=== PATIENT | female | born 1945 | race Caucasian/White ===

== ENCOUNTER 2021-11-26 18:32 | Emergency (ER) | payer MEDICARE, OTHER ==
[~2021-11-26] VITALS: Ht 157.5 cm; Wt 49.9 kg
--- NOTE | 2021-11-26 20:00 | NUR ---
PT [facility] [address] "Unwitnessed fall around noon today. - KO. PT C/O LEFT KNEE AND ANKLE PAIN. PT A/O X 3, RR EVEN AND UNLABORED, NO SOB NOTED. PT NOTED IN NO ACUTE DISTRESS. WILL CONTINUE TO MONITOR.
[2021-11-26 20:36] LABS: BASOPHILS % (AUTO) 0.3 % (0.0-2.0); EOSINOPHILS % (AUTO) 0.7 % (0.0-6.0); HEMATOCRIT 36 % (33-45); HEMOGLOBIN 12.3 g/dL (11.5-14.8); LYMPHOCYTES # (AUTO) 2.1 K/uL (0.8-4.8); LYMPHOCYTES % (AUTO) 24.3 % (20.0-44.0); MEAN CORPUSCULAR HGB CONC 34 g/dl (31.0-36.0); MEAN CORPUSCULAR VOLUME 97 fL (82-100); NEUTROPHILS # (AUTO) 5.6 K/uL (1.8-8.9); NEUTROPHILS % (AUTO) 63.7 % (43.0-81.0); PLATELET COUNT (AUTO) 245 K/uL (150-450); RED BLOOD CELL COUNT(AUTO) 3.74 MIL/uL (4.0-5.2); WHITE BLOOD COUNT (AUTO) 8.7 K/uL (4.3-11.0)
--- NOTE | 2021-11-26 21:00 | NUR ---
[facility]
[2021-11-26 21:36] LABS: ALANINE AMINOTRANSFERASE 9 U/L (12-78); ALBUMIN 3.4 g/dL (3.4-5.0); ALKALINE PHOSPHATASE 70 U/L (46-116); ASPARTATE AMINOTRANSFERASE 37 U/L (15-37); BILIRUBIN,DIRECT 0.2 mg/dL (0.0-0.2); BILIRUBIN,TOTAL 0.7 mg/dL (0.2-1.0); CALCIUM, SERUM 8.8 mg/dL (8.5-10.1); CARBON DIOXIDE 25 mmol/L (21-32); CHLORIDE 108 mmol/L (98-107); CREATININE 0.8 mg/dL (0.6-1.3); GLUCOSE 102 mg/dL (74-106); POTASSIUM 3.8 mmol/L (3.5-5.1); SODIUM SERUM 142 mmol/L (136-145); TOTAL PROTEIN, SERUM 6.3 g/dL (6.4-8.2); UREA NITROGEN, BLOOD 27 mg/dL (7-18)
--- NOTE | 2021-11-26 21:50 | NUR ---
[facility]SP[facility] ETA 60-75 MINUTES.
--- NOTE | 2021-11-26 23:10 | NUR ---
[facility] UPDATED ETA 30 MINUTES.
--- NOTE | 2021-11-27 00:37 | NUR ---
[facility] AT BEDSIDE FOR PICKUP BACK TO FACILITY
--- NOTE | 2021-11-27 00:50 | NUR ---
PT TRANSPORTED BACK TO [facility] EM[facility] IN STABLE CONDITION.
[2021-11-27 01:00] VITALS: BP 131/96
[2021-12-04] MEDS ORDERED: CEPH500C2 PO (09:32)
== END 2021-11-27 00:50 | disposition home or self-care (01) ==
LOC: ER 18:38
DX: R39.2 Extrarenal uremia (principal); R29.6 Repeated falls; F20.9 Schizophrenia, unspecified; Z86.69 Personal history of other diseases of the nervous system and sense organs
CPT/HCPCS: 36415; 70450-TC; 72125-TC; 80048-TC; 80076-TC; 84484-TC; 85025-TC; 85730-TC

== ENCOUNTER 2021-12-01 14:01 | Inpatient (IN) | payer MEDICARE, OTHER ==
[~2021-12-01] VITALS: Ht 152.7 cm; Wt 45.4 kg
--- NOTE | 2021-12-01 14:28 | NUR ---
TO ER BED 10, BIBPA S/P FALL. UNWITNESSED FOUND BY STAFF ON FLOOR. LT ANKLE SWELLING HX OF FALL, AAOX3, BREATHING EVEN AND NON LABORED, CONNECTED TO MONITOR, AWAITING MD STAPLETON
--- NOTE | 2021-12-01 15:55 | NUR ---
[facility] AT BEDSIDE FOR XRAY
[2021-12-01 16:29] LABS: BASOPHILS % (AUTO) 0.1 % (0.0-2.0); EOSINOPHILS % (AUTO) 1.1 % (0.0-6.0); HEMATOCRIT 36 % (33-45); LYMPHOCYTES # (AUTO) 1.6 K/uL (0.8-4.8); LYMPHOCYTES % (AUTO) 19.6 % (20.0-44.0); MEAN CORPUSCULAR HGB CONC 34 g/dl (31.0-36.0); MEAN CORPUSCULAR VOLUME 96 fL (82-100); MONOCYTES # (AUTO) 0.9 K/uL (0.1-1.30); MONOCYTES % (AUTO) 11.1 % (2.0-12.0); NEUTROPHILS # (AUTO) 5.5 K/uL (1.8-8.9); NEUTROPHILS % (AUTO) 68.1 % (43.0-81.0); PLATELET COUNT (AUTO) 299 K/uL (150-450); RED BLOOD CELL COUNT(AUTO) 3.72 MIL/uL (4.0-5.2)
[2021-12-01 17:09] LABS: CALCIUM, SERUM 8.7 mg/dL (8.5-10.1); CREATININE 0.7 mg/dL (0.6-1.3); POTASSIUM 3.8 mmol/L (3.5-5.1)
[2021-12-01] MEDS ORDERED: ARIP5TAB10 PO (18:26)
[2021-12-01] MEDS ORDERED: CARB1TAB31 PO (18:26)
[2021-12-01] MEDS ORDERED: ATOR10TA PO (18:26)
--- NOTE | 2021-12-01 20:48 | NUR ---
EPIC PANEL PAGED
--- NOTE | 2021-12-01 20:50 | NUR ---
EPIC PAGED FOR PANEL CALL
--- NOTE | 2021-12-01 21:27 | NUR ---
REPORT GIVEN TO GRACIELA NYE
--- NOTE | 2021-12-01 21:29 | NUR ---
RFA #20G S/L; PATENT AND INTACT. COVID ANTIGEN SWAB COLLECTED AND SENT TO LAB
--- NOTE | 2021-12-01 21:42 | NUR ---
PT TRANSFERRING TO [facility]IA HOSPITAL PROTOCOL. VSS
[2021-12-01] MEDS ORDERED: MAGNESIUM HYDROXIDE 30 ML UDC PO PRN (23:00)
[2021-12-01] MEDS ORDERED: Z GUARD REMEDY 4 OZ OINT TP PRN (23:00)
[2021-12-01] MEDS ORDERED: MAG HYDROX/AL HYDROX/SIMETH 30 ML UDC PO PRN (23:00)
[2021-12-01] MEDS ORDERED: ACETAMINOPHEN 325 MG TABLET PO PRN (23:00)
[2021-12-01] MEDS ORDERED: ZOLPIDEM TARTRATE 5 MG TABLET PO PRN (23:00)
[2021-12-01] MEDS ORDERED: ONDANSETRON HCL/PF 4 MG/2 ML VIAL IVP PRN (23:00)
[2021-12-01 23:31] VITALS: BP 146/71
--- NOTE | 2021-12-01 23:39 | NUR ---
FISCAL ANALYSTSAFETY TEACHER NOTE PATIENT CAME IN UNIT @0550 ACCOMPANIED BY 1 ER PERSONNEL VIA [employer]. NO S/S OF APPARENT DISTRESS ON ROOM AIR. A/OX2-3. NO C/O AT THIS TIME-- PER PATIENT SHE ONLY FEELS PAIN IN HER LEGS ONLY WHEN SHE MOVES AND WALK. PATIENT UNSTEADY. NEW ID BAND ON PATIENT. BELONGINGS INVENTORIED. PATIENT WISHES TO BE FULL CODE AT THIS TIME. PER PATIENT SHE HAS NO CONTACT NUMBER IN FILE, NO NEXT OF KIN CHARTED WELL. TELE MONITOR READING SR WITH 60 BPM. PER PATIENT SHE QUIT SMOKING 6 YEARS AGO OR LONGER. DENIES ALCOHOL ABUSE. INTACT SKIN, WITH BRUISE ON R. LEG. V/S FOLLOWS: 146/71, 60 BPM, RR-16, T-98.4, SATURATION 96% IN ROOM AIR. ORIENTED IN THE UNIT AND THE USE OF CALL LIGHT. SAFETY IN PLACE. WILL CONTINUE WITH PLAN OF CARE FOR PATIENT.
[2021-12-01] MEDS: IV NS 0.9% 1,000 ML IV PRN (23:50)
--- NOTE | 2021-12-02 03:30 | NUR ---
SHOE PARTS CASER NOTE UA, CLEAN CATH COLLECTED AT THIS TIME. CALLED LAB FOR ORCHARDIST.
--- NOTE | 2021-12-02 03:59 | NUR ---
ORTHOSTATIC BP LYING DOWN- 131/50 HR-89 SITTING DOWN - 120/60 HR-86 STANDING UP - 110/61 HR- 105 PATIENT FAIRLY WEAK. ASSISTED WITH KEEPING UPRIGHT. SAFETY MAINTAINED WITH THE ASSISTANCE OF RADIOLOGY NURSE. PATIENT DENIED FEELING FAINT OR DIZZINESS DURING ORTHOSTATIC BUT DID VERBALIZE FEELING WEAK WHEN SITTED DOWN AND UPRIGHT.
[2021-12-02 04:16] VITALS: BP 131/50
[2021-12-02 05:48] LABS: BASOPHILS % (AUTO) 0.1 % (0.0-2.0); EOSINOPHILS % (AUTO) 1.2 % (0.0-6.0); HEMATOCRIT 33 % (33-45); HEMOGLOBIN 11.2 g/dL (11.5-14.8); LYMPHOCYTES # (AUTO) 1.4 K/uL (0.8-4.8); MEAN CORPUSCULAR HGB CONC 34 g/dl (31.0-36.0); MEAN CORPUSCULAR VOLUME 96 fL (82-100); MONOCYTES # (AUTO) 0.7 K/uL (0.1-1.30); MONOCYTES % (AUTO) 9.3 % (2.0-12.0); NEUTROPHILS # (AUTO) 5.2 K/uL (1.8-8.9); NEUTROPHILS % (AUTO) 70.4 % (43.0-81.0); PLATELET COUNT (AUTO) 271 K/uL (150-450); RED BLOOD CELL COUNT(AUTO) 3.44 MIL/uL (4.0-5.2); WHITE BLOOD COUNT (AUTO) 7.4 K/uL (4.3-11.0)
[2021-12-02 05:59] LABS: CALCIUM, SERUM 8.3 mg/dL (8.5-10.1); CARBON DIOXIDE 26 mmol/L (21-32); CHLORIDE 109 mmol/L (98-107); CREATININE 0.7 mg/dL (0.6-1.3); GLUCOSE 78 mg/dL (74-106); MAGNESIUM 1.9 mg/dL (1.8-2.4); POTASSIUM 3.6 mmol/L (3.5-5.1); SODIUM SERUM 144 mmol/L (136-145); UREA NITROGEN, BLOOD 20 mg/dL (7-18)
[2021-12-02 06:12] LABS: CHOLESTEROL 119 mg/dL (<200); HDL CHOLESTEROL 53 mg/dL (40-60); LDL 57 mg/dL (0-99); THYROID STIMULATING HORMONE 2.348 uIU/mL (0.358-3.74); TRIGLYCERIDES 38 mg/dL (30-150)
--- NOTE | 2021-12-02 06:40 | NUR ---
CREDIT UNION FIELD EXAMINER CLOSING NOTE PATIENT IN BED WITH EYES CLOSED, EASY TO AROUSE. NO S/S OF APPARENT DISTRESS IN ROOM AIR. NO C/O PAIN AT THIS TIME. TELE MONITOR READING SR WITH 61 BPM AT THIS TIME. R. FA #20G RUNNING NS @75MLS/HR. NEEDS ATTENDED. ALL SCHEDULED MEDICATIONS ADMINISTERED. WILL ENDORSE TO MORNING SHIFT RN FOR CONTINUITY OF CARE.
--- NOTE | 2021-12-02 07:25 | NUR ---
ms rn received on bed awake,oriented x2,not in any form of distress, respirations even and unlabored,no sob noted.lugs are clear,abdomen soft,positive bowel sounds,denies pain at this time.
[2021-12-02 08:00] VITALS: BP 114/57
--- NOTE | 2021-12-02 08:50 | NUR ---
ms castellano breakfast served,due med given tolerated well.will monitor patient.
[2021-12-02] MEDS: PANTOPRAZOLE 40 MG TABLET.DR PO SCH (09:34)
[2021-12-02] MEDS: ARIPIPRAZOLE 5 MG TABLET PO SCH (10:09)
[2021-12-02] MEDS: CARBIDOPA/LEVODOPA 10/100 MG 1 UDTAB PO SCH ×3 (11:37→17:05)
[2021-12-02 12:00] VITALS: BP 117/64
--- NOTE | 2021-12-02 12:00 | NUR ---
ms rn on bed, no distress noted.
[2021-12-02 13:01] LABS: BILIRUBIN,URINE NEGATIVE (NEGATIVE); COLOR,URINE ORANGE (YELLOW); LEUKOCYTE ESTERASE ,URINE SMALL (NEGATIVE); NITRITE, URINE POSITIVE (NEGATIVE); PROTEIN,URINE NEGATIVE (NEGATIVE); UGLUCOSE NEGATIVE (NEGATIVE); UROBILINOGEN,URINE 0.2 EU/dL (0.2)
[2021-12-02 13:15] LABS: BACTERIA,URINE 4+ /HPF (None Seen); RBC,URINE 0-2 /HPF (0-2)
--- NOTE | 2021-12-02 15:20 | NUR ---
ms rn removed iv heplock, will reinsert later.
[2021-12-02 16:00] VITALS: BP 138/68
[2021-12-02] MEDS: IV NS 0.9% 1,000 ML IV PRN (18:20)
[2021-12-02] MEDS: CEFTRIAXONE 1 G in IV D5W 50 ML IV SCH (18:30)
--- NOTE | 2021-12-02 19:00 | NUR ---
ms rn all needs attended.
--- NOTE | 2021-12-02 19:30 | NUR ---
RN OPENING NOTE PATIENT IN BED. AWAKE. PATIENT IS A/O X 2 AT THIS TIME. PATIENT HAS A LFA 22 G WITH NS AT 75 ML/HR. PATENT AND INTACT. PATIENT DOES NOT REPORT ANY PAIN OR DISCOMFORT AT THIS TIME. PATIENT ON RA, TOLERATING WELL. NO SOB NOTED. SAFETY MEASURES IN PLACE: BED LOCKED AND IN LOWEST POSITION, CALL LIGHT WITHIN REACH, SIDE RAILS UP. WILL MONITOR PATIENT CLOSELY. Addendum: 12/02/21 at 2022 by ADDI MACDONALD RN SR WITH PAC 73
[2021-12-02 20:00] VITALS: BP 116/58
[2021-12-02] MEDS: ATORVASTATIN 10 MG TABLET PO SCH (21:18)
[2021-12-03] VITALS: BP 129/65
[2021-12-03 04:00] VITALS: BP 148/56
[2021-12-03] MEDS: IV NS 0.9% 1,000 ML IV PRN ×2 (06:01→21:01)
[2021-12-03 07:13] LABS: CALCIUM, SERUM 8.9 mg/dL (8.5-10.1); CREATININE 0.8 mg/dL (0.6-1.3); POTASSIUM 3.9 mmol/L (3.5-5.1)
--- NOTE | 2021-12-03 07:20 | NUR ---
RN OPENING NOTES RECEIVED PATIENT IN BED, AWAKE, NO SIGNS OF ACUTE DISTRESS NOTED. ON ROOM AIR, NO SOB NOTED, BREATHING EVEN AND UNLABORED. ON TELE MONITOR CURRENTLY SHOWING SINUS RHYTHM, HR @63. DENIES ANY PAIN AT THIS TIME. WITH IV ACCESS ON LEFT FOREARM #22G, INTACT AND PATENT WITH NS @75ML/HR RUNNING. SAFETY MEASURE INPLACE, BED IN LOWEST AND LOCKED POSITION, SIDE RAILS UP X2, CALL LIGHT PLACED WITHIN EASY REACH. WILL CONTINUE TO MONITOR PATIENT.
[2021-12-03 08:00] VITALS: BP 138/77
[2021-12-03] MEDS: PANTOPRAZOLE 40 MG TABLET.DR PO SCH (08:07)
[2021-12-03] MEDS: CARBIDOPA/LEVODOPA 10/100 MG 1 UDTAB PO SCH ×3 (08:07→16:18)
[2021-12-03] MEDS: ARIPIPRAZOLE 5 MG TABLET PO SCH (08:07)
[2021-12-03 16:00] VITALS: BP 106/51
[2021-12-03] MEDS: CEFTRIAXONE 1 G in IV D5W 50 ML IV SCH (17:30)
--- NOTE | 2021-12-03 18:43 | NUR ---
RN CLOSING NOTES PATIENT IN BED, AWAKE, A/O X1-2. WITH CONFUSION, REALITY ORIENTATION PROVIDED NEEDED. NO SIGNS OF ACUTE DISTRESS NOTED. REMAINS STABLE ON ROOM AIR, NO SOB NOTED, BREATHING EVEN AND UNLABORED. ON TELE MONITOR CURRENTLY SHOWING SINUS RHYTHM, HR @83 WITH PAC'S. DENIES ANY PAIN AT THIS TIME. IV ACCESS ON LEFT FOREARM #22G, INTACT AND PATENT WITH NS @75ML/HR RUNNING. ALL DUE MEDS GIVEN, TOLERATED WELL. SAFETY MEASURE MAINTAINED: BED IN LOWEST AND LOCKED POSITION, SIDE RAILS UP, BED ALARM ON, CALL LIGHT PLACED WITHIN EASY REACH. WILL ENDORSE TO NEXT SHIFT FOR CONTINUITY OF CARE.
--- NOTE | 2021-12-03 19:47 | NUR ---
RN OPENING NOTE PATIENT IN BED. AWAKE. PATIENT IS A/O X 1-2, WITH PERIODS OF CONFUSION. PATIENT HAS A LFA 22 G WITH NS AT 75 ML/HR, INFUSING WELL. TELE MONITOR READS SR 69 WITH PAC. PATIENT DOES NOT REPORT ANY PAIN OR DISCOMFORT AT THIS TIME. PATIENT ON RA, TOLERATING WELL. NO SOB NOTED. SAFETY MEASURES IN PLACE: BED LOCKED AND IN LOWEST POSITION, CALL LIGHT WITHIN REACH, SIDE RAILS UP. WILL MONITOR PATIENT CLOSELY.
[2021-12-03 20:00] VITALS: BP 120/58
--- NOTE | 2021-12-03 20:34 | NUR ---
pulled out lfa 22 g, new iv inserted rfa 22 g, patent and intact. wrapped in kerlix to prevent patient from pulling out.
[2021-12-03] MEDS: ATORVASTATIN 10 MG TABLET PO SCH (21:04)
[2021-12-04] VITALS: BP 130/60
[2021-12-04 04:00] VITALS: BP 110/49
--- NOTE | 2021-12-04 06:34 | NUR ---
RN CLOSING NOTE PATIENT IN BED. EYES CLOSED, PATIENT IS A/O X 1-2 DURING THE SHIFT WITH CONFUSION. PATIENT DOES NOT REPORT ANY PAIN OR DISCOMFORT AT THIS TIME. PATIENT ON RA, TOLERATING WELL. NO SOB NOTED. TELE MONITOR READS SR 70 BPM WITH PAC. RFA 22 G PATENT AND INTACT WITH NS AT 75 ML/HR ONGOING. SAFETY MEASURES IN PLACE: BED LOCKED AND IN LOWEST POSITION, CALL LIGHT WITHIN REACH, SIDE RAILS UP. ALL NEEDS MET AND ATTENDED. ALL ORDERS CARRIED OUT. WILL ENDORSE TO DAY SHIFT NURSE FOR JAMEL.
[2021-12-04] MEDS: PANTOPRAZOLE 40 MG TABLET.DR PO SCH (08:17)
[2021-12-04] MEDS: CARBIDOPA/LEVODOPA 10/100 MG 1 UDTAB PO SCH ×2 (08:17→12:18)
[2021-12-04] MEDS: ARIPIPRAZOLE 5 MG TABLET PO SCH (08:18)
[2021-12-04 08:35] VITALS: BP 135/63
--- NOTE | 2021-12-04 09:25 | NUR ---
[employer] RESOURCE PLANNING CONSULTANT OPENING NOTES PATIENT IN BED. EYES CLOSED, EASILY AWAKEN. CONFUSED. PATIENT DOES NOT REPORT ANY PAIN OR DISCOMFORT AT THIS TIME. PATIENT ON RA, TOLERATING WELL. NO SOB NOTED. TELE MONITOR READS SR 70S BPM WITH ARRHYTHMIA. RFA 22 G PATENT AND INTACT WITH NS AT 75 ML/HR ONGOING. SAFETY MEASURES IN PLACE: BED LOCKED AND IN LOWEST POSITION, CALL LIGHT WITHIN REACH, SIDE RAILS UP. WILL CONTINUE TO MONITOR PATIENT.
[2021-12-04] MEDS ORDERED: CEPH500C2 PO (09:32)
[2021-12-04 11:57] VITALS: BP 109/48
--- NOTE | 2021-12-04 15:58 | NUR ---
SOURCING ASSOCIATEFURNACE CLERK NOTES PATIENT DISCHARGED TO SNF IN MEDICALLY STABLE CONDITION. PATIENT A/O X1 WITH PERIODS OF CONFUSION, ABLE TO MAKE NEEDS KNOWN. ALL DISCHARGE PAPERWORK READY AND PHYSICIAN DISCHARGE INSTRUCTIONS PROVIDED TO RECEIVING NURSE AT THE FACILITY. BELONGINGS ACCOUNTED FOR AND FORMS SIGNED BY 2 RNs. IV ACCESS REMOVED. PATIENT LEFT THE UNIT VIA GURNEY ACCOMPANIED BY 2 research spec.
== END 2021-12-04 16:00 | DRG 640 ==
LOC: ER 14:04 → MED 21:01 → TELE 23:30
PROVIDERS: ADMIT Student in an Organized Health Care Education/Training Program; ATTEND Nurse Practitioner Acute Care
DX: E86.0 Dehydration (principal); G93.41 Metabolic encephalopathy; E44.0 Moderate protein-calorie malnutrition; N39.0 Urinary tract infection, site not specified; R64 Cachexia; Z68.1 Body mass index [BMI] 19.9 or less, adult; F02.80 Dementia in other diseases classified elsewhere, unspecified severity, without behavioral disturbance, psychotic disturbance, mood disturbance, and anxiety; G20 Parkinson's disease; Z20.822 Contact with and (suspected) exposure to COVID-19; I10 Essential (primary) hypertension; E78.5 Hyperlipidemia, unspecified; R26.9 Unspecified abnormalities of gait and mobility; F20.9 Schizophrenia, unspecified; F41.9 Anxiety disorder, unspecified; Z79.899 Other long term (current) drug therapy; R79.89 Other specified abnormal findings of blood chemistry; E03.8 Other specified hypothyroidism; E86.1 Hypovolemia; W19.XXXA Unspecified fall, initial encounter; Y92.129 Unspecified place in nursing home as the place of occurrence of the external cause
CPT/HCPCS: 36415; 70450-TC; 71045-TC; 72170-TC; 73564-TC; 73610-TC; 80048-TC; 80061-TC; 81001; 83735-TC; 84100-TC; 84439-TC; 84443-TC; 84484-TC; 85025-TC; 87081-TC; 87086-TC; 87186-TC; 93307-TC; 93971-TC; 97116-TC; 97530-TC; G0378; J0696; J7030; J7040; J7050; J7060

== ENCOUNTER 2023-04-06 16:10 | Emergency (ER) | payer MEDICARE, OTHER ==
[~2023-04-06] VITALS: Ht 172.7 cm; Wt 44.5 kg
[~2023-04-06 16:10] MED LIST: ARIP5TAB10 PO; ATOR10TA PO; CARB1TAB31 PO; CEPH500C2 PO
[2023-04-06] MEDS ORDERED: DONE5TAB34 PO (17:22)
[2023-04-06] MEDS ORDERED: MULT-366 PO (17:22)
[2023-04-06] MEDS ORDERED: OMEG-162 PO (17:22)
[2023-04-06] MEDS ORDERED: SENN-261 PO (17:22)
[2023-04-06] MEDS ORDERED: DOCU-141 PO (17:22)
[2023-04-06] MEDS ORDERED: POLY17PO4 PO (17:22)
[2023-04-06] MEDS ORDERED: TRIA1TAB3 PO (17:22)
[2023-04-06] MEDS ORDERED: ACET-2605 PO ×2 (17:22)
[2023-04-06] MEDS ORDERED: MIRT7.5T10 PO (17:22)
[2023-04-06] MEDS ORDERED: MELA5TAB PO (17:22)
[2023-04-06] MEDS ORDERED: ACETAMINOPHEN ES 500 MG TABLET ONE (17:29)
[2023-04-06] MEDS ORDERED: ACETAMINOPHEN ES 500 MG TABLET PO ONE (17:30)
[2023-04-06 20:27] VITALS: BP 115/61; TEMP 98.6; O2SAT 100
== END 2023-04-06 20:27 | disposition home or self-care (01) ==
LOC: ER 16:10
DX: M54.50 Low back pain, unspecified (principal); R51.9 Headache, unspecified; M25.551 Pain in right hip; G20.A1 Parkinson's disease without dyskinesia, without mention of fluctuations; F03.90 Unspecified dementia, unspecified severity, without behavioral disturbance, psychotic disturbance, mood disturbance, and anxiety; I10 Essential (primary) hypertension; E78.5 Hyperlipidemia, unspecified; F20.9 Schizophrenia, unspecified; F41.9 Anxiety disorder, unspecified; Z79.899 Other long term (current) drug therapy; W18.39XA Other fall on same level, initial encounter; Y93.89 Activity, other specified; Y92.89 Other specified places as the place of occurrence of the external cause; Y99.8 Other external cause status
CPT/HCPCS: 70450-TC; 71045-TC; 72125-TC; 72192-TC; J7030